=== PATIENT | female | born 1935 ===

== ENCOUNTER 2018-06-22 18:36 | Observation (INO) | payer MEDICARE, OTHER ==
[2018-06-22 20:29] LABS: BASO # 0.1 K/uL (0.0-0.2); BASO % 0.5 % (0.0-2.0); EOS % 0.1 % (0.0-4.0); HEMOGLOBIN 12.4 g/dL (12.0-16.0); LYMPH # 1.1 K/uL (1.0-4.3); LYMPH % 6.4 % (20.0-40.0); MEAN CELL VOLUME 88.6 fl (81.0-99.0); MEAN CORPUSCULAR HEMOGLOBIN 29.8 pg (27.0-31.0); MEAN CORPUSCULAR HGB CONC 33.6 g/dL (33.0-37.0); MEAN PLATELET VOLUME 9.2 fl (7.2-11.7); MONO # 0.8 K/uL (0.0-0.8); MONO % 4.9 % (0.0-10.0); NEUT # 14.6 K/uL (1.8-7.0); NEUT % 88.1 % (50.0-75.0); PLATELET COUNT 200 K/uL (130-400); RBC 4.15 Mil/uL (3.80-5.20); RED CELL DISTRIBUTION WIDTH 14.4 % (11.5-14.5); WHITE BLOOD COUNT 16.6 K/uL (4.8-10.8)
--- NOTE | 2018-06-22 20:32 | ED PDOC ---
HPI: Fever Time Seen by Provider: 06/22/18 18:46 Fever Onset Was: 06/22/18 The Fever Was Measured: Tactile What Antipyretic Given Prior To Arrival: Acetaminophen Additional Comments: Lilly Orta is an 82 year old female with a past medical history of hypertension, hypercholesterolemia, diabetes, and arthritis who is presenting to the ED for evaluation of fever onset around 4 pm today. According to the daughter, patient had a tactile fever and gave her Tylenol. Around lunch , daughter reports that she had a decreased appetite and ate little. Around 3 pm , patient reportedly was very tired and just wanted to sleep. Patient otherwise has no complaints and denies any cough, runny nose, sore throat, or diarrhea. Of note, patient is visiting from [place]. PMD: none provided Past Medical History Reviewed: Historical Data, Nursing Documentation, Vital Signs Vital Signs: Last Vital Signs Temp 98.0 F 06/24/18 00:00 Pulse 62 06/24/18 00:00 Resp 18 06/24/18 00:00 BP 116/60 06/24/18 00:00 Pulse Ox 95 06/24/18 00:00 - Medical History PMH: Arthritis, Dementia, Diabetes, HTN, Hypercholesterolemia - Surgical History Other surgeries: bilateral knee replacement - Family History Family History: States: Unknown Family Hx - Social History Current smoker - smoking cessation education provided: No Alcohol: None Drugs: Denies - Home Medications Home Medications: Ambulatory Orders Medication Instructions Recorded Donepezil HCl [Aricept] 10 mg PO HS 06/23/18 Glipizide [Glipizide ER] 1 tab PO DAILY 06/23/18 Lisinopril/Hydrochlorothiazide 1 each PO DAILY 06/23/18 [Lisinopril-Hctz 10-12.5 mg Tab] Sertraline [Zoloft] 50 mg PO DAILY 06/23/18 - Allergies Allergies/Adverse Reactions: Allergies Allergy/AdvReac Type Severity Reaction Status Date / Time No Known Allergies Allergy Verified 06/22/18 18:43 Review of Systems ROS Statement: Except As Marked, All Systems Reviewed And Found Negative Constitutional: Positive for: Fever ENT: Negative for: Nose Discharge, Throat Pain Respiratory: Negative for: Cough Gastrointestinal: Negative for: Diarrhea Physical Exam - Reviewed Nursing Documentation Reviewed: Yes Vital Signs Reviewed: Yes - Physical Exam Appears: Positive for: Non-toxic, No Acute Distress Head Exam: Positive for: ATRAUMATIC, NORMOCEPHALIC Skin: Positive for: Warm, Dry Eye Exam: Positive for: EOMI, PERRL ENT: Negative for: Pharyngeal Erythema, Tonsillar Exudate Neck: Positive for: Painless ROM, Supple Cardiovascular/Chest: Positive for: Regular Rate, Rhythm. Negative for: Murmur Respiratory: Positive for: Normal Breath Sounds. Negative for: Wheezing Gastrointestinal/Abdominal: Positive for: Normal Exam (obese abdomen), Soft, Other (reducible umbilical hernia). Negative for: Tenderness, Mass, Guarding, Rebound Back: Positive for: Normal Inspection. Negative for: Vertebral Tenderness Extremity: Positive for: Swelling (trace bilateral leg edema) Lymphatic: Negative for: Adenopathy Neurologic/Psych: Positive for: Alert. Negative for: Motor/Sensory Deficits - Laboratory Results Result Diagrams: 06/22/18 20:25 06/22/18 20:25 - ECG O2 Sat by Pulse Oximetry: 98 (RA) Pulse Ox Interpretation: Normal Medical Decision Making Medical Decision Making: Time: 19:44 Impression: Fever Differentials: Viral Syndrome, UTI, Pneumonia Plan: --VBG --EKG --B-Type Natriuretic Peptide --CMP --Lipase --Magnesium --Phosphorous --Troponin --CBC --Coag --Chest X-ray --Blood Culture --Glucose, POC --Influenza A B --Rapid Strep --Urinalysis Labs: Leukocytosis, urine with wbc9 and hyaline casts, mildly elevated lactic acid. CXR with no infiltrates Pt with persistent SBP 90s despite IVF and h/o htn. To be hospitalized for dehydration and febrile illness with no source. JENNA [facility] Med Service. Scribe Attestation: Documented by, Enedina Torrez acting as a scribe for Felecia Herandez MD. Provider Scribe Attestation: All medical record entries made by the Scribe were at my direction and personally dictated by me. I have reviewed the chart and agree that the record accurately reflects my personal performance of the history, physical exam, medical decision making, and the department course for this patient. I have also personally directed, reviewed, and agree with the discharge instructions and disposition. Disposition - Clinical Impression Clinical Impression: Fever of unknown origin, Dehydration - Disposition Disposition Time: 00:00 Condition: FAIR - Pt Status Changed To: Hospital Disposition Of: Observation - POA Present On Arrival: None
[2018-06-22 20:36] LABS: INR 1.1; PROTHROMBIN TIME 11.9 Seconds (9.8-13.1)
[2018-06-22 20:39] LABS: PARTIAL THROMBOPLASTIN TIME 32.7 Seconds (25.6-37.1)
[2018-06-22 20:40] LABS: VENOUS BLOOD GAS BASE EXCESS 2.6 mmol/L (0.0-2.0); VENOUS BLOOD GAS PCO2 41 mmHg (40-60); VENOUS BLOOD GAS PO2 48 mm/Hg (30-55); VENOUS BLOOD PH 7.43 (7.32-7.43)
[2018-06-22] MEDS ORDERED: Sodium Chloride 0.9% 500 ML IV STA (20:42)
[2018-06-22 21:13] LABS: BANDS 2 % (0-2); LYMPHOCYTE 6 % (20-50); MONOCYTE 5 % (0-10); NEUTROPHIL 87 % (42-75); PLATELET ESTIMATE NORMAL (NORMAL); TOTAL CELLS COUNTED 100
[2018-06-22 21:26] LABS: ALB/GLOB RATIO 1.1 (1.0-2.1); ALBUMIN 3.8 g/dL (3.5-5.0); CALCIUM 9.7 mg/dL (8.4-10.2)
[2018-06-22] MEDS ORDERED: Sodium Chloride 0.9% 1,000 ML IV STA (21:36)
[2018-06-22 21:37] LABS: TROPONIN I 0.031 ng/mL (0.00-0.120)
[2018-06-23 00:33] LABS: SQUAMOUS EPITHIAL 6 /hpf (0-5); URINE BACTERIA MOD (<OCC); URINE BILIRUBIN NEGATIVE (NEGATIVE); URINE BLOOD NEGATIVE (NEGATIVE); URINE CLARITY CLOUDY (Clear); URINE COLOR YELLOW (YELLOW); URINE GLUCOSE (UA) NEG (Normal); URINE LEUKOCYTE ESTERASE TRACE Leu/uL (Negative); URINE PROTEIN NEGATIVE (NEGATIVE); URINE UROBILINOGEN 0.2-1.0 mg/dL (0.2-1.0)
--- NOTE | 2018-06-23 08:07 | CT ---
Date of service: 06/23/2018 PROCEDURE: CT Abdomen and Pelvis without intravenous contrast HISTORY: febile illness renal insufficiency COMPARISON: None. TECHNIQUE: Technique. Contrast dose: Radiation dose: Total exam DLP = mGy-cm. This CT exam was performed using one or more of the following dose reduction techniques: Automated exposure control, adjustment of the mA and/or kV according to patient size, and/or use of iterative reconstruction technique. FINDINGS: LOWER THORAX: Unremarkable. LIVER: Unremarkable. No gross lesion or ductal dilatation. GALLBLADDER AND BILE DUCTS: Unremarkable. PANCREAS: Unremarkable. No gross lesion or ductal dilatation. SPLEEN: Unremarkable. ADRENALS: Unremarkable. No mass. KIDNEYS AND URETERS: 5 centimeter exophytic left renal cyst. No hydronephrosis. No solid mass. VASCULATURE: Unremarkable. No aortic aneurysm. BOWEL: Unremarkable. No obstruction. No gross mural thickening. APPENDIX: Unremarkable. Normal appendix. PERITONEUM: Unremarkable. No free fluid. No free air. LYMPH NODES: Unremarkable. No enlarged lymph nodes. BLADDER: Unremarkable. REPRODUCTIVE: Unremarkable. BONES: No acute fracture. OTHER FINDINGS: None. IMPRESSION: 5 centimeter exophytic left renal cyst.
--- NOTE | 2018-06-23 08:37 | RAD ---
Date of service: 06/22/2018 HISTORY: fever COMPARISON: No prior. FINDINGS: LUNGS: No active pulmonary disease. PLEURA: No significant pleural effusion identified, no pneumothorax apparent. CARDIOVASCULAR: Normal. OSSEOUS STRUCTURES: No significant abnormalities. VISUALIZED UPPER ABDOMEN: Normal. OTHER FINDINGS: None. IMPRESSION: No active disease.
[2018-06-23] MEDS: Enoxaparin 30 mg Syringe SC SCH (09:48)
[2018-06-23] MEDS: GlipiZIDE 2.5 mg SR Tab PO SCH (09:48)
--- NOTE | 2018-06-23 18:19 | HP ---
CHIEF COMPLAINT: High fever. HISTORY OF PRESENT ILLNESS: This is an 82-year-old female with advanced dementia, hypertension, diabetes, elevated cholesterol, and arthritis, who was noticed to have a fever by the patient's daughter, so the patient was brought to the emergency room and was admitted for further management. The patient is a very poor historian. REVIEW OF SYSTEMS: At this time is negative for headache, dizziness, syncope, loss of consciousness, chest pain, shortness of breath, nausea, vomiting, diarrhea, constipation, any new joint or extremity pain, any urinary symptoms, or any coughing. Review of systems of all other organ system are unremarkable. PAST MEDICAL HISTORY: Significant for diabetes, hypertension, elevated cholesterol, arthritis, and dementia. PAST SURGICAL HISTORY: Remarkable for bilateral knee replacement. PERSONAL HISTORY: The patient lives with her daughter, nonsmoker, nondrinker, no substance abuse. MEDICATIONS: The patient is on no medications as per reconciliation sheet. ALLERGIES: THE PATIENT IS NOT ALLERGIC TO ANY MEDICATIONS. FAMILY HISTORY: Noncontributory. PHYSICAL EXAMINATION GENERAL: Well-built, well-nourished female with advanced dementia, in no acute distress. VITAL SIGNS: Temperature 98.1, pulse 57, respirations 16, blood pressure 98/56. HEENT: Pupils are reacting to light. No JVD. No thyromegaly. No lymphadenopathy. No nystagmus. Normocephalic, atraumatic skull. HEART: S1 and S2, normal and regular. No significant murmur, gallop, or rubs are heard. LUNGS: Shows good bilateral air exchange. No rales or rhonchi. ABDOMEN: Soft, and nontender. No organomegaly. No fluid. Bowel sounds are plus and normal. No sign for costovertebral angle tenderness. No sign of acute abdomen. No guarding. No rigidity. No rebound. EXTREMITIES: No edema. No calf swelling. No tenderness. No acute ischemia. CLINICAL MATERIAL HANDLER: Exam is essentially unchanged. DIAGNOSTIC DATA: Available diagnostic data reviewed. Chest x-ray is clear. EKG shows normal sinus rhythm without any acute ST-T changes. Telemetry monitoring does not reveal significant arrhythmias. WBC 7.6, hemoglobin 12.4, hematocrit 36.8, and platelet 200. Lactic acid is 2, sodium 138, potassium 4.6, chloride 103, bicarb 29, BUN 29, creatinine of 0.6. SMA-12 is unremarkable and proBNP level is 1400. Urine analysis is positive for moderate bacteria, but negative for nitrites or . ADMITTING IMPRESSION: Septicemia, questionable urinary tract infection, congestive heart failure, advanced dementia, diabetes, hypertension, and elevated cholesterol. PLAN: Case and plan discussed with the patient's daughter at bedside. David Grant MD
--- NOTE | 2018-06-23 21:32 | CARD ---
APPROVED REPORT Date of service: 06/22/2018 <Conclusion> Normal sinus rhythm Normal ECG
[2018-06-24 06:19] LABS: HEMOGLOBIN 10.5 g/dL (12.0-16.0); MEAN CELL VOLUME 88.7 fl (81.0-99.0); MEAN CORPUSCULAR HEMOGLOBIN 30.4 pg (27.0-31.0); MEAN CORPUSCULAR HGB CONC 34.3 g/dL (33.0-37.0); RBC 3.46 Mil/uL (3.80-5.20); RED CELL DISTRIBUTION WIDTH 14.4 % (11.5-14.5); WHITE BLOOD COUNT 7.9 K/uL (4.8-10.8)
[2018-06-24 06:46] LABS: ALBUMIN 3.1 g/dL (3.5-5.0)
[2018-06-24] MEDS: Enoxaparin 30 mg Syringe SC SCH (08:36)
[2018-06-24] MEDS: GlipiZIDE 2.5 mg SR Tab PO SCH (08:36)
[2018-06-24] MEDS: Sodium Chloride 0.9% 1,000 ML IV SCH (11:02)
--- NOTE | 2018-06-24 13:07 | PN ---
DATE: 06/24/2018 SUBJECTIVE: The patient seen and examined. Interim events noted. The patient remains in regular medical floor, feels much better. Denies any chest pain, shortness of breath, abdominal pain, nausea, vomiting, or diarrhea. PHYSICAL EXAMINATION: GENERAL: The patient is in no acute distress. VITAL SIGNS: Stable. HEART: S1 and S2, normal and regular. LUNGS: Good bilateral air exchange. ABDOMEN: Soft, nontender. No organomegaly. No fluid. Bowel sounds are plus and normal. No sign of acute abdomen. No guarding. No rigidity. No rebound. Bowel sounds are plus and normal. EXTREMITIES: No edema. No calf swelling. No tenderness. No acute ischemia. NETWORKING SPECIALIST: Exam is essentially unchanged. DIAGNOSTIC DATA: Available diagnostic data reviewed. ASSESSMENT AND PLAN: Overall, the patient's general medical condition is stable. Plan as ordered. David Grant MD
[2018-06-24 15:29] LABS: CALCIUM 8.8 mg/dL (8.4-10.2)
[2018-06-24 15:56] VITALS: RESP 18
[2018-06-25 00:21] VITALS: O2SAT 97
[2018-06-25] MEDS: Sodium Chloride 0.9% 1,000 ML IV SCH ×2 (00:50)
[2018-06-25 06:29] LABS: HEMOGLOBIN 10.3 g/dL (12.0-16.0); MEAN CELL VOLUME 88.4 fl (81.0-99.0); MEAN CORPUSCULAR HEMOGLOBIN 30.5 pg (27.0-31.0); MEAN CORPUSCULAR HGB CONC 34.5 g/dL (33.0-37.0); RBC 3.39 Mil/uL (3.80-5.20); RED CELL DISTRIBUTION WIDTH 14.4 % (11.5-14.5); WHITE BLOOD COUNT 8.4 K/uL (4.8-10.8)
[2018-06-25 07:15] LABS: ALBUMIN 2.9 g/dL (3.5-5.0); CALCIUM 8.6 mg/dL (8.4-10.2)
[2018-06-25 08:29] VITALS: BP 132/62; PULSE 54; TEMP 97.6
--- NOTE | 2018-06-25 12:08 | PN ---
DATE: 06/25/2018 SUBJECTIVE: The patient seen and examined. Interim events noted. The patient remains in regular medical floor. Feels okay. The patient herself is not able to provide informative history or review of system. The patient's daughter is at bedside. The patient denies any specific complaint. No chest pain. No shortness of breath. No abdominal pain. The patient is tolerating diet. No vomiting. No diarrhea. PHYSICAL EXAMINATION: GENERAL: The patient is in no acute distress. VITAL SIGNS: Stable. HEART: S1 and S2, normal and regular. LUNGS: Good bilateral air exchange. ABDOMEN: Soft and nontender. EXTREMITIES: No edema. No calf swelling. No tenderness. No acute ischemia. TOBACCO CLASSER: Exam is essentially unchanged. DIAGNOSTIC DATA: Available diagnostic data reviewed. BUN is improving, but still high at 30. ASSESSMENT AND PLAN: Physical therapy evaluation noted and appreciated. The patient is for transitional care unit. The patient is traveling to [place] on Sunday. May be two or three days of transitional care management. We will optimize the patient for the same. Plan as ordered. Case and plan discussed with the patient's family at bedside. The patient herself is not able to comprehend to the same. Plan as ordered. David Grant MD
--- NOTE | 2018-06-25 12:22 | CP.PCM.HP ---
Past Patient History - Past Medical History & Family History Past Medical History?: Yes - Past Social History Alcohol: None Drugs: Denies - CARDIAC Hx Hypercholesterolemia: Yes Hx Hypertension: Yes - PULMONARY Hx Respiratory Disorders: No - NEUROLOGICAL Hx Dementia: Yes - HEENT Hx HEENT Problems: No - RENAL Hx Chronic Kidney Disease: Yes Other/Comment: Renal insufficiency - ENDOCRINE/METABOLIC Hx Endocrine Disorders: Yes (Diabetes Mellitus type 2) - HEMATOLOGICAL/ONCOLOGICAL Hx Blood Disorders: No Hx AIDS: No Hx Human Immunodeficiency Virus (HIV): No - INTEGUMENTARY Hx Dermatological Problems: No - MUSCULOSKELETAL/RHEUMATOLOGICAL Hx Arthritis: Yes - GASTROINTESTINAL Hx Gastrointestinal Disorders: Yes Hx Colitis: Yes - GENITOURINARY/GYNECOLOGICAL Hx Genitourinary Disorders: Yes Hx Incontinence: Yes - PSYCHIATRIC Hx Psychophysiologic Disorder: No Hx Substance Use: No - SURGICAL HISTORY Hx Surgeries: Yes Hx Joint Replacement: Yes (Narinder TKR more than 20 yrs ago) - ANESTHESIA Hx Anesthesia: Yes Hx Anesthesia Reactions: No Hx Malignant Hyperthermia: No Has any member of the family had a problem w/ anesthesia?: No Meds Allergies/Adverse Reactions: Allergies Allergy/AdvReac Type Severity Reaction Status Date / Time No Known Allergies Allergy Verified 06/22/18 18:43 Results - Vital Signs Recent Vital Signs: Last Vital Signs Temp 97.6 F 06/25/18 08:29 Pulse 54 L 06/25/18 08:29 Resp 18 06/25/18 08:29 BP 132/62 06/25/18 08:29 Pulse Ox 97 06/25/18 08:29 - Labs Result Diagrams: 06/25/18 05:30 06/25/18 05:30 Labs: Laboratory Results - last 24 hr 06/24/18 06/24/18 06/24/18 14:34 16:19 21:38 WBC RBC Hgb Hct MCV MCH MCHC RDW Plt Count Sodium 138 Potassium 4.0 Chloride 105 Carbon Dioxide 31 H Anion Gap 6 L BUN 35 H Creatinine 1.4 H Est GFR ( Amer) 43 Est GFR (Non-Af Amer) 36 POC Glucose (mg/dL) 81 76 Random Glucose 86 Calcium 8.8 Total Bilirubin AST ALT Alkaline Phosphatase Total Protein Albumin Globulin Albumin/Globulin Ratio 06/24/18 06/25/18 06/25/18 22:39 05:30 05:30 WBC 8.4 RBC 3.39 L Hgb 10.3 L Hct 29.9 L MCV 88.4 MCH 30.5 MCHC 34.5 RDW 14.4 Plt Count 169 Sodium 141 Potassium 4.1 Chloride 110 H Carbon Dioxide 30 Anion Gap 5 L BUN 30 H Creatinine 1.3 H Est GFR ( Amer) 47 Est GFR (Non-Af Amer) 39 POC Glucose (mg/dL) 90 Random Glucose 85 Calcium 8.6 Total Bilirubin 0.2 AST 39 H D ALT 28 Alkaline Phosphatase 34 L Total Protein 5.9 L Albumin 2.9 L Globulin 3.0 Albumin/Globulin Ratio 1.0 06/25/18 06/25/18 05:37 11:27 WBC RBC Hgb Hct MCV MCH MCHC RDW Plt Count Sodium Potassium Chloride Carbon Dioxide Anion Gap BUN Creatinine Est GFR ( Amer) Est GFR (Non-Af Amer) POC Glucose (mg/dL) 79 110 Random Glucose Calcium Total Bilirubin AST ALT Alkaline Phosphatase Total Protein Albumin Globulin Albumin/Globulin Ratio
--- NOTE | 2018-06-26 19:16 | CP.PCM.DIS ---
Provider - Provider Date of Admission: 06/23/18 00:18 Attending physician: David Grant MD Time Spent in preparation of Discharge (in minutes): 35 Hospital Course - Lab Results Lab Results: Micro Results 06/22/18 20:45 Blood-Venous Blood Culture - Preliminary NO GROWTH AFTER 3 DAYS 06/22/18 20:15 Blood-Venous Blood Culture - Preliminary NO GROWTH AFTER 3 DAYS 06/23/18 00:22 Urine,Catheterized Urine Culture - Final No Growth (<1,000 CFU/ML) 06/22/18 20:25 Throat Group A Strep Throat Culture - Final NORMAL SAPROPHYTIC CONSTANZA. CULTURE NEGATIVE FOR BETA STREP GROUP A. Most Recent Lab Values WBC 8.4 K/uL (4.8-10.8) 06/25/18 05:30 RBC 3.39 Mil/uL (3.80-5.20) L 06/25/18 05:30 Hgb 10.3 g/dL (12.0-16.0) L 06/25/18 05:30 Hct 29.9 % (34.0-47.0) L 06/25/18 05:30 MCV 88.4 fl (81.0-99.0) 06/25/18 05:30 MCH 30.5 pg (27.0-31.0) 06/25/18 05:30 MCHC 34.5 g/dL (33.0-37.0) 06/25/18 05:30 RDW 14.4 % (11.5-14.5) 06/25/18 05:30 Plt Count 169 K/uL (130-400) 06/25/18 05:30 MPV 9.2 fl (7.2-11.7) 06/22/18 20:25 Neut % (Auto) 88.1 % (50.0-75.0) H 06/22/18 20:25 Lymph % (Auto) 6.4 % (20.0-40.0) L 06/22/18 20:25 [place] % (Auto) 4.9 % (0.0-10.0) 06/22/18 20:25 Eos % (Auto) 0.1 % (0.0-4.0) 06/22/18 20:25 Baso % (Auto) 0.5 % (0.0-2.0) 06/22/18 20:25 Neut # (Auto) 14.6 K/uL (1.8-7.0) H 06/22/18 20:25 Lymph # (Auto) 1.1 K/uL (1.0-4.3) 06/22/18 20:25 [place] # (Auto) 0.8 K/uL (0.0-0.8) 06/22/18 20:25 Eos # (Auto) 0.0 K/uL (0.0-0.7) 06/22/18 20:25 Baso # (Auto) 0.1 K/uL (0.0-0.2) 06/22/18 20:25 Neutrophils % (Manual) 87 % (42-75) H 06/22/18 20: Band Neutrophils % 2 % (0-2) 06/22/18 20:25 Lymphocytes % (Manual) 6 % (20-50) L 06/22/18 20: Monocytes % (Manual) 5 % (0-10) 06/22/18 20: Platelet Estimate Normal (NORMAL) 06/22/18 20: RBC Morphology Normal (NORMAL) 06/22/18 20: PT 11.9 Seconds (9.8-13.1) 06/22/18 20: INR 1.1 06/22/18 20: APTT 32.7 Seconds (25.6-37.1) 06/22/18 20: pO2 48 mm/Hg (30-55) 06/22/18 20:32 VBG pH 7.43 (7.32-7.43) 06/22/18 20: VBG pCO2 41 mmHg (40-60) 06/22/18 20:32 VBG HCO3 26.6 mmol/L 06/22/18 20:32 VBG Total CO2 28.5 mmol/L (22-28) H 06/22/18 20:32 VBG O2 Sat (Calc) 90.9 % (40-65) H 06/22/18 20:32 VBG Base Excess 2.6 mmol/L (0.0-2.0) H 06/22/18 20:32 VBG Potassium 4.1 mmol/L (3.6-5.2) 06/22/18 20: Sodium 137.0 mmol/L (132-148) 06/22/18 20:32 Chloride 104.0 mmol/L (98-107) 06/22/18 20:32 Glucose 147 mg/dL (65-105) H 06/22/18 20:32 Lactate 2.0 mmol/L (0.7-2.1) 06/22/18 20:32 FiO2 21.0 % 06/22/18 20:32 Crit Value Called To deidra Hernadez md 06/22/18 20:32 Crit Value Called By Rafa montero 06/22/18 20:32 Crit Value Read Back Y 06/22/18 20:32 Blood Gas Notified Time 203906/22/18 20:32 Sodium 141 mmol/l (132-148) 06/25/18 05:30 Potassium 4.1 MMOL/L (3.6-5.0) 06/25/18 05:30 Chloride 110 mmol/L (98-107) H 06/25/18 05:30 Carbon Dioxide 30 mmol/L (22-30) 06/25/18 05:30 Anion Gap 5 (10-20) L 06/25/18 05:30 BUN 30 mg/dl (7-17) H 06/25/18 05:30 Creatinine 1.3 mg/dl (0.7-1.2) H 06/25/18 05:30 Est GFR ( Amer) 47 06/25/18 05:30 Est GFR (Non-Af Amer) 39 06/25/18 05:30 POC Glucose (mg/dL) 110 mg/dL (65-110) 06/25/18 11:27 Random Glucose 85 mg/dL (65-105) 06/25/18 05:30 Calcium 8.6 mg/dL (8.4-10.2) 06/25/18 05:30 Phosphorus 3.2 mg/dl (2.5-4.5) 06/22/18 20:25 Magnesium 1.9 MG/DL (1.6-2.3) 06/22/18 20:25 Total Bilirubin 0.2 mg/dl (0.2-1.3) 06/25/18 05:30 AST 39 U/L (14-36) H D 06/25/18 05:30 ALT 28 U/L (9-52) 06/25/18 05:30 Alkaline Phosphatase 34 U/L (38-126) L 06/25/18 05:30 Troponin I 0.0310 ng/mL (0.00-0.120) 06/22/18 20:25 NT-Pro-B Natriuret Pep 1400 pg/ml (0-900) H 06/22/18 20:25 Total Protein 5.9 G/DL (6.3-8.2) L 06/25/18 05:30 Albumin 2.9 g/dL (3.5-5.0) L 06/25/18 05:30 Globulin 3.0 gm/dL (2.2-3.9) 06/25/18 05:30 Albumin/Globulin Ratio 1.0 (1.0-2.1) 06/25/18 05:30 Triglycerides 88 mg/DL (0-149) 06/23/18 08:30 Cholesterol 160 mg/dL (0-199) 06/23/18 08:30 LDL Cholesterol Direct 88 mg/dL (0-129) 06/23/18 08:30 HDL Cholesterol 33 MG/DL (30-70) 06/23/18 08:30 Lipase 133 U/L (23-300) 06/22/18 20:25 Vitamin B12 343 pg/mL (239-931) 06/23/18 08:30 TSH 3rd Generation 1.97 mIU/ML (0.46-4.68) 06/23/18 08:30 Venous Blood Potassium 4.1 mmol/L (3.6-5.2) 06/22/18 20:32 Urine Color Yellow (YELLOW) 06/22/18 23:59 Urine Clarity Cloudy (Clear) 06/22/18 23:59 Urine pH 5.0 (5.0-8.0) 06/22/18 23:59 Ur Specific [place] 1.021 (1.003-1.030) 06/22/18 23:59 Urine Protein Negative mg/dL (NEGATIVE) 06/22/18 23:59 Urine Glucose (UA) Neg mg/dL (Normal) 06/22/18 23:59 Urine Ketones Negative mg/dL (NEGATIVE) 06/22/18 23:59 Urine Blood Negative (NEGATIVE) 06/22/18 23:59 Urine Nitrate Negative (NEGATIVE) 06/22/18 23:59 Urine Bilirubin Negative (NEGATIVE) 06/22/18 23:59 Urine Urobilinogen 0.2-1.0 mg/dL (0.2-1.0) 06/22/18 23:59 Ur Leukocyte Esterase Trace [place]/uL (Negative) 06/22/18 23:59 Urine RBC (Auto) 2 /hpf (0-3) 06/22/18 23:59 Urine Microscopic WBC 9 /hpf (0-5) H 06/22/18 23:59 Ur Squamous Epith Cells 6 /hpf (0-5) H 18 23:59 Urine Bacteria Mod (<OCC) H 06/22/18 23:59 Hyaline Casts 11-20 /hpf (0-2) H 06/22/18 23:59 Influenza Typ A,B (EIA) Negative for flu a/b (NEGATIVE) 06/22/18 20:25 Grp A Beta Strep Ag Negative (NEGATIVE) 06/22/18 20:25 - Hospital Course Hospital Course: Discharge Summary for 06/25 82 year old female with a past medical history of hypertension, hypercholesterolemia, diabetes, and arthritis who is presenting to the ED for evaluation of fever and fatigue and as admitted for febrile illness and renal insufficiency. Pt did not have a documented fever during admission. Cxray and Abdomen CT were normal. Pt was treated with IV fluids and crea function showed improvement. She was evaluated by PT and cleared for discharge home advised to f/u with PMD in [place]. Discussed case with Dr. Lisandro Manriquez, PGY2 Discharge Exam - Head Exam Head Exam: ATRAUMATIC, NORMOCEPHALIC - Eye Exam Eye Exam: Normal appearance - ENT Exam ENT Exam: Mucous Membranes Moist - Neck Exam Neck exam: Full Rom - Respiratory Exam Respiratory Exam: Clear to PA & Lateral - Cardiovascular Exam Cardiovascular Exam: REGULAR RHYTHM - GI/Abdominal Exam GI & Abdominal Exam: Normal Bowel Sounds - Neurological Exam Neurological exam: Alert, Normal Gait - Psychiatric Exam Psychiatric exam: Normal Mood - Skin Skin Exam: Normal Color Discharge Plan - Follow Up Plan Condition: FAIR Disposition: HOME/ ROUTINE Instructions: Dehydration, Adult (DC), Fever, Adult (DC), Dehydration (DC) Additional Instructions: hacer jacob con gordon primario dentro de 1 semana Referrals: David Grant MD [Staff Provider] -
== END 2018-06-25 16:10 | disposition home or self-care (01) ==
LOC: H.ER 18:36 → H.ERHOLD 06-23 00:18 → H.MEDSURG1 06-23 03:00
PROVIDERS: ADMIT Internal Medicine; ATTEND Internal Medicine
DX: N39.0 Urinary tract infection, site not specified (principal); F03.90 Unspecified dementia, unspecified severity, without behavioral disturbance, psychotic disturbance, mood disturbance, and anxiety; E86.0 Dehydration; E11.9 Type 2 diabetes mellitus without complications; I10 Essential (primary) hypertension; M19.90 Unspecified osteoarthritis, unspecified site; E78.00 Pure hypercholesterolemia, unspecified; Z96.653 Presence of artificial knee joint, bilateral; Z79.899 Other long term (current) drug therapy
CPT/HCPCS: 36415; 71045; 74176; 80053; 80061; 81003; 82607; 82803; 82948; 83690; 83735; 83880; 84100; 84443; 84484; 85025; 85027; 85610; 85730; 87040; 87070; 87086; 87430; 87804; 93005; 97162; 99283; G0378; G8978; G8979; J1650; J7030